=== PATIENT | female | born 1995 | race Caucasian/White ===

== ENCOUNTER → 2018-03-08 | Outpatient (CLI) | payer OTHER ==
[~2018-03-08] MED LIST: CLR10 PO; OXAP600T PO
[2018-03-08 12:35] LABS: TRANSFERRIN 300 mg/dl (200-360)
[2018-03-11 21:36] LABS: PARVOVIRUS IgM INDEX 0.3 (<0.9)
== END | disposition home or self-care (01) ==
LOC: C.LAB1850 09:36
PROVIDERS: ATTEND Internal Medicine Rheumatology
DX: M79.641 Pain in right hand (principal); M79.642 Pain in left hand; M46.1 Sacroiliitis, not elsewhere classified; M54.5 Low back pain

== ENCOUNTER → 2018-03-08 | Outpatient (CLI) | payer OTHER ==
--- NOTE | 2018-03-08 10:22 | DIAGNOSTIC IMAGING REPORT ---
L KNEE 1 OR 2 VIEWS ROUTINE CLINICAL HISTORY: Bilateral knee pain. COMPARISON: None FINDINGS: Alignment of the left knee is anatomic. No fracture or suspicious lesion is identified. The joint spaces are preserved. There is an equivocal joint effusion. No erosions are identified. IMPRESSION: 1. No osseous abnormality of the left knee. 2. Equivocal joint effusion. Electronically signed by: Natalio Luciano M.D. 03/08/2018 10:20 AM Dictated Date/Time: 03/08/2018 10:20 AM
--- NOTE | 2018-03-08 10:22 | DIAGNOSTIC IMAGING REPORT ---
R KNEE 1 OR 2 VIEWS ROUTINE CLINICAL HISTORY: Bilateral knee pain. COMPARISON: None FINDINGS: Alignment of the right knee is anatomic. No fracture or suspicious lesion. No joint effusion is identified. No erosions are identified. IMPRESSION: Unremarkable right knee radiographs. Electronically signed by: Natalio Luciano M.D. 03/08/2018 10:21 AM Dictated Date/Time: 03/08/2018 10:21 AM
--- NOTE | 2018-03-08 10:25 | DIAGNOSTIC IMAGING REPORT ---
SI JOINTS 3 OR MORE VIEWS CLINICAL HISTORY: Sacroiliitis. COMPARISON STUDY: No previous studies for comparison. FINDINGS: An intrauterine device is incidentally noted. Sacroiliac joints are intact without evidence for ankylosis. No fracture or suspicious osseous lesion is present. There may be a bone island within the right femoral head. No erosions are identified. There may be a transitional vertebra at the lumbosacral junction. IMPRESSION: Unremarkable radiographic appearance of the sacroiliac joints. No erosions identified. Electronically signed by: Natalio Luciano M.D. 03/08/2018 10:24 AM Dictated Date/Time: 03/08/2018 10:23 AM
--- NOTE | 2018-03-08 10:30 | DIAGNOSTIC IMAGING REPORT ---
L HAND MIN 3 VIEWS ROUTINE CLINICAL HISTORY: 79.641 Bilateral hand painM79.642 Sacroiliitis, not elsewhere cl COMPARISON: None. DISCUSSION: The bones and joint spaces appear intact. There is no evidence of fracture, dislocation or bony disease. There is no evidence for soft tissue swelling. IMPRESSION: Negative study. The above report was generated using voice recognition software. It may contain grammatical, syntax or spelling errors. Electronically signed by: Sonny Sanchez M.D. 03/08/2018 10:29 AM Dictated Date/Time: 03/08/2018 10:28 AM
== END | disposition home or self-care (01) ==
LOC: C.RAD1850 09:49
PROVIDERS: ATTEND Internal Medicine Rheumatology
DX: M25.561 Pain in right knee (principal); M25.562 Pain in left knee; M46.1 Sacroiliitis, not elsewhere classified; M54.5 Low back pain; M79.641 Pain in right hand; M79.642 Pain in left hand; M25.462 Effusion, left knee

== ENCOUNTER → 2018-03-19 | Outpatient (CLI) | payer OTHER ==
--- NOTE | 2018-03-19 10:10 | DIAGNOSTIC IMAGING REPORT ---
SACROILIAC JOINT MRI CLINICAL HISTORY: SACROILIITIS TECHNIQUE: Multiplanar multisequence MRI of the sacroiliac joints was performed without the use of intravenous contrast. COMPARISON STUDY: Sacroiliac joints 03/08/2018. FINDINGS: No erosions, sclerosis, or abnormal signal within the sacroiliac joints. The sacrum demonstrates a normal marrow signal intensity. No fractures identified. Presacral soft tissues are within normal limits. There are few small follicles/cysts within the ovaries. The Intrauterine device is in good position. The sacral canal and sacral neural foramen are patent. Transitional vertebra at S1 with a hypoplastic S1-S2 disc space. The uterus is retroflexed. Trace pelvic fluid is likely physiologic. IMPRESSION: Normal bilateral sacroiliac joints. Electronically signed by: Srini Page M.D. 03/19/2018 10:09 AM Dictated Date/Time: 03/19/2018 10:05 AM
== END | disposition home or self-care (01) ==
LOC: C.MRI 09:13
PROVIDERS: ATTEND Internal Medicine Rheumatology
DX: M25.561 Pain in right knee (principal); M25.562 Pain in left knee; M46.1 Sacroiliitis, not elsewhere classified; M54.5 Low back pain; M79.641 Pain in right hand; M79.642 Pain in left hand

== ENCOUNTER 2022-04-22 12:47 | Inpatient (IN) ==
[2022-04-22] MEDS ORDERED: OXYTOCIN 30 UNITS/500 ML BAG IV PRN ×3 (13:30→20:17)
[2022-04-22 14:22] LABS: Hematocrit (blood only) 33.4 % (37-47); Hemoglobin 10.7 g/dL (12.0-16.0); Mean Corpuscular Hemoglobin 27.1 pg (25-34); Mean Corpuscular Volume 84.6 fL (80-100); Platelet Count 212 K/uL (130-400); RDW Coefficient of Variation 13.8 % (11.5-14.5); RDW Standard Deviation 42.6 fL (36.4-46.3); Red Blood Count 3.95 M/uL (4.2-5.4); White Blood Count 10.03 K/uL (4.8-10.8)
[2022-04-22] MEDS: LACTATED RINGER'S 1,000 ML IV PRN ×2 (15:33→17:05)
[2022-04-22] MEDS ORDERED: ePHEDrine sulfate 50 MG/ML AMP ONE (15:41)
[2022-04-22] MEDS ORDERED: SODIUM CHLORIDE 0.9% INJ 10 ML VIAL ONE (15:41)
[2022-04-22] MEDS ORDERED: fentaNYL citrate 100 MCG/2 ML VIAL ONE (15:41)
[2022-04-22] MEDS ORDERED: BUPIVACAINE 0.25% 30 ML VIAL ONE (15:42)
[2022-04-22] MEDS ORDERED: fentaNYL 2MCG/ML ROPIVACAINE 1.25MG/ML 100 ML BAG EPI ONE (15:42)
[2022-04-22] MEDS ORDERED: ONDANSETRON INJ 2 MG/ML 2 ML VIAL IV PRN (15:48)
[2022-04-22] MEDS ORDERED: NALBUPHINE HCL INJ 10 MG/ML AMP IV PRN (15:48)
[2022-04-22] MEDS ORDERED: NALOXONE HCL 0.4 MG/1 ML VIAL/CARP IV PRN (15:48)
[2022-04-22] MEDS ORDERED: diphenhydrAMINE 50 MG/ML VIAL IV PRN (15:48)
[2022-04-22] MEDS ORDERED: fentaNYL 2MCG/ML ROPIVACAINE 1.25MG/ML 100 ML BAG EPI PRN (15:48)
[2022-04-22] MEDS ORDERED: NALOXONE HCL 1 MG in SODIUM CHLORIDE 0.9% 1000ML 1,000 ML IV PRN (15:48)
[2022-04-22] MEDS ORDERED: ePHEDrine sulfate 50 MG/ML AMP IV PRN (15:48)
--- NOTE | 2022-04-22 15:49 | Anesthesiology Consultation ---
Date of Service April 22, 2022 Assessment & Plan (1) Encounter for pre-operative examination: History Height/Weight Height: 5 ft 4 in Weight: 100.244 kg Allergies Allergy/AdvReac Type Severity Reaction Status Date / Time No Known Allergies Verified 04/22/22 13:51 Medications Home Medications Medication Instructions Recorded Confirmed Last Taken prenat.vits,tressa,egq-urhw-xvnma 1 tab PO DAILY 09/09/21 04/22/22 Unknown famotidine 10 mg tablet (Pepcid AC) 10 mg PO DAILY 09/20/21 04/22/22 Unknown acetone (urine) test (Ketone Urine #50 ea 02/13/22 04/18/22 Unknown Test) blood sugar diagnostic ([employer] [facility] #150 ea 02/13/22 04/18/22 Unknown Verio test strips) blood-glucose meter ([employer] [facility] #1 ea 02/13/22 04/18/22 Unknown Verio Flex meter) lancets 33 gauge (OneTouch Delica #150 ea 02/13/22 04/18/22 Unknown Plus Lancet) ondansetron HCl 4 mg tablet 4 mg PO Q6H #30 tab 02/21/22 04/22/22 Unknown Active Medications Generic Name Dose Route Start Last Admin Trade Name Freq PRN Reason Stop Dose Admin Lactated Ringer's 1,000 mls @ 125 mls/hr 04/22/22 13:30 04/22/22 15:35 Lr IV 04/24/22 13:29 999 mls/hr .Q8H PRN Infusion L&D Protocol Protocol Past Medical History Medical History Depression No pertinent past medical history Past Family History Family History Mother Hypertension Multiple sclerosis Thyroid disease Family/Other Diabetes Denies family history of Ovarian cancer Breast cancer Colorectal cancer Past Surgical History Surgical History S/P tooth extraction Social History Smoking Status: Never smoker Hx Alcohol Use: No Hx Substance Use: No substance use type: does not use Physical Exam Vital Signs Last Vital Signs Temp 36.9 C 04/22/22 13:01 Pulse 79 04/22/22 15:37 Resp 20 04/22/22 13:01 BP 128/85 04/22/22 15:37 Testing Laboratory Results 04/22/22 13:53 Blood Type O Positive 04/22/22 13:53 Antibody Screen NEGATIVE 04/22/22 13:53
--- NOTE | 2022-04-22 17:10 | History & Physical Report ---
Date of Service April 22, 2022 Assessment & Plan (1) Encounter for supervision of normal in multigravida: Plan: Admit to L&D, EFM/toco. Labs, IV fluids. Glucose checks Q1h when active labor. Gave patient option to either start pitocin now, or ambulate and see if she kicks in . Agreeable to pitocin if no labor in 6h. She plans for epidural. Admission and Anticipated Discharge Date Admission Date: April 22, 2022 History of Present Illness Chief Complaint: labor Primary Care Provider: Griffin Lujan 27yo @ 39 0/7, admitted this morning after SROM, clear fluid at home 9:45a. Sometimes feeling contractions. No vaginal bleeding. + movement. with: Obesity (BMI between 35-39 @ beginning of ) *Growth US @ 32 wks *Weekly NSTs @ 36wks GDM w/28wk glucola *Begin monthly AC Us's ECV scheduled 04/10/22-successful Allergies Allergy/AdvReac Type Severity Reaction Status Date / Time No Known Allergies Verified 04/22/22 13:51 Home Medications Medication Instructions Recorded Confirmed Type prenat.vits,tressa,ajd-oset-tswhe 1 tab PO DAILY 09/09/21 04/22/22 History famotidine 10 mg tablet (Pepcid AC) 10 mg PO DAILY 09/20/21 04/22/22 History acetone (urine) test (Ketone Urine #50 ea 02/13/22 04/18/22 Rx Test) blood sugar diagnostic (OneTouch #150 ea 02/13/22 04/18/22 Rx Verio test strips) blood-glucose meter (OneTouch #1 ea 02/13/22 04/18/22 Rx Verio Flex meter) lancets 33 gauge (OneTouch Delica #150 ea 02/13/22 04/18/22 Rx Plus Lancet) ondansetron HCl 4 mg tablet 4 mg PO Q6H #30 tab 02/21/22 04/22/22 Rx Patient History Medical History Depression No pertinent past medical history Surgical History S/P tooth extraction Family History Mother Hypertension Multiple sclerosis Thyroid disease Family/Other Diabetes Denies family history of Ovarian cancer Breast cancer Colorectal cancer Social History Smoking Status: Never smoker Second Hand Exposure: No; Hx Alcohol Use: No Hx Substance Use: No Preferred Language: Irish Communication Ability: Effective Critical Systems Technician Required: No Beliefs That Will Affect Care: None marital status: marital status details: Rufino Russo (28) [phone] Current Living Situation: Family Current Living Situation Comment: and 10 y/o daughter; 1 dog, 3 cats, snake, lizard current occupational status: employed 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 No s/s chorio or abruption. Skin: no rashes, warm and dry Psychiatric: A+Ox3, euthymic affect Results & Data ([facility]) Vital Signs (Past 12 Hours) Vital Signs Temp Pulse Resp BP Pulse Ox 04/22/22 17:07 77 124/58 L 04/22/22 17:05 79 98 04/22/22 17:03 80 121/67 04/22/22 17:00 79 98 04/22/22 16:58 76 103/70 04/22/22 16:55 84 99 04/22/22 16:52 75 108/57 L 04/22/22 16:50 83 97 04/22/22 16:47 75 113/60 04/22/22 16:45 83 97 04/22/22 16:44 72 115/63 04/22/22 16:40 79 98 04/22/22 16:39 78 116/64 04/22/22 16:35 84 98 04/22/22 16:31 82 115/61 04/22/22 16:30 85 97 04/22/22 16:29 77 114/61 04/22/22 16:27 81 119/63 04/22/22 16:25 37.0 C 95 H 18 117/66 99 04/22/22 16:23 90 126/71 04/22/22 16:20 108 H 98 04/22/22 16:15 102 H 98 04/22/22 16:10 89 99 04/22/22 16:05 94 H 100 04/22/22 16:00 85 100 04/22/22 15:55 107 H 99 04/22/22 15:50 84 99 04/22/22 15:37 79 128/85 04/22/22 13:01 36.9 C 96 H 20 130/84 04/22/22 12:58 96 H 130/84 Monitoring External Monitor FHT Cat 1 [place] Q 3-4 min SVE 4/70/-2, soft/posterior. EFW 7-8 Coding Level of Care Code None Diagnoses Encounter for supervision of normal in multigravida Z34.80
[2022-04-22] MEDS ORDERED: LIDOCAINE 1% LOCAL 20 ML VIAL ONE (19:51)
--- NOTE | 2022-04-22 20:15 | Delivery Summary ---
Vaginal Delivery Summary Date of Service April 22, 2022 Vaginal Delivery Summary Vaginal Delivery Summary: Pre-delivery diagnoses: 27yo @ 39 0/7, spontaneous labor, s/p ECV, GDMA1, obesity Post-delivery diagnoses: same Procedure: spontaneous vaginal delivery Surgeon: Char Keith DO Complications: none Findings: Viable female . Apgars: 8/9. Weight pending, please see nursery records. Estimated blood loss: 300ml Description of delivery: The patient progressed to complete with epidural anesthesia. She then began to push. She spontaneously vaginally delivered a viable from the cephalic presentation. The head delivered in GALO position. The anterior shoulder delivered, followed by the posterior shoulder, followed by the body. No nuchal cord noted. The baby was placed on mother's abdomen and a spontaneous cry was heard. Delayed cord clamping was employed, and the cord was doubly clamped and cut. Cord blood was obtained. The placenta was delivered spontaneously intact with a 3-vessel cord. The uterus and vagina were swept of clots and debris. IV pitocin was given. The uterus became firm. Bladder was emptied with a red-rubber catheter. The cervix, vagina, and perineum were inspected and bilateral labial lacerations were noted and repaired with 3-0 Vicryl, with the catheter still in place. Excellent hemostasis was observed. The mother and baby are recovering in stable and good condition in the room. Sponge, needle and instrument counts were correct x 2. Char Keith DO [facility] [place]
[2022-04-22] MEDS ORDERED: ACETAMINOPHEN 325 MG TAB PO PRN (20:17)
[2022-04-22] MEDS ORDERED: DIPHTHERIA/TETANUS/PERTUSSIS 0.5 ML SYR/VIAL IM ONE (20:17)
[2022-04-22] MEDS ORDERED: HYDROCORTISONE ACETATE 25 MG SUPP PR PRN (20:17)
[2022-04-22] MEDS ORDERED: FAMOTIDINE 10 MG TABLET PO PRN (20:17)
[2022-04-22] MEDS ORDERED: bisacodyL 10 MG SUPP PR PRN (20:17)
[2022-04-22] MEDS ORDERED: oxyCODONE/ACETAMINOPHEN 5mg/325mg TAB PO PRN (20:17)
[2022-04-22] MEDS ORDERED: BENZOCAINE 20% AER SPR 82.5 GM CAN EXT PRN (20:17)
[2022-04-22] MEDS: DOCUSATE SODIUM 100 MG CAP PO SCH (21:09)
--- NOTE | 2022-04-22 22:47 | Anesthesia Procedure Note ---
Date of Service April 22, 2022 Anesthesia Post Epidural Note Vital Signs Vital Signs: Temp Pulse Resp BP Pulse Ox 36.7 C 83 20 139/75 97 04/22/22 19:01 04/22/22 22:04 04/22/22 22:03 04/22/22 22:04 04/22/22 20:00 Pain Intensity Bilateral Pelvic: Pain Intensity: 2 Notes Mental Status: alert / awake / arousable Nausea / Vomiting: adequately controlled Pain: adequately controlled Airway Patency, RR, SpO2: stable & adequate BP & HR: stable & adequate Hydration State: stable & adequate Neuraxial Anesthesia: was administered and sensory block is resolving Anesthetic Complications: no major complications apparent and Pt Satisfied with anesthetic care Epidural: Removed without complications and With tip intact
[2022-04-23 06:28] LABS: Hematocrit (blood only) 30.8 % (37-47); Hemoglobin 9.8 g/dL (12.0-16.0)
[2022-04-23] MEDS ORDERED: PRENATAL VITAMIN 1 TAB PO SCH (08:00)
--- NOTE | 2022-04-23 08:03 | Obstetrical Progress Note ---
Date of Service April 23, 2022 Assessment & Plan (1) Encounter for supervision of normal in multigravida: PPD#1 doing well. No concerns. Routine recovery. Desires discharge home today, reviewed instructions. Followup in office 6w PP. Subjective Ambulation: ambulating normally Voiding: no voiding problems Diet Tolerance:: regular diet Lochia:: Moderate PPD#1 doing well. . Review of Systems All systems reviewed & are unremarkable except as noted in HPI & below Physical Exam Constitutional WD/WN, vitals as above no acute distress Respiratory normal respiratory effort Cardiovascular Rate/Rhythm: regular rate and regular rhythm Gastrointestinal (Abdomen) Inspection/Auscultation: abdomen normal to inspection; abdomen not distended Percussion/Palpation: abdomen soft Genitourinary OB Exam Abdomen: + fundal height Fundus: + firm; not tender Results & Data ([facility]) Vital Signs (Past 12 Hours) Vital Signs Temp Pulse Pulse Resp BP BP Pulse Ox 04/23/22 04:16 36.8 C 73 18 125/78 97 04/22/22 22:55 36.5 C 87 16 136/86 97 04/22/22 22:04 83 139/75 04/22/22 22:03 83 20 139/75 04/22/22 21:49 82 113/62 04/22/22 21:34 81 131/75 04/22/22 21:33 83 18 111/63 04/22/22 21:19 83 111/63 04/22/22 21:04 89 120/75 04/22/22 21:02 79 18 129/80 04/22/22 20:49 79 129/80 04/22/22 20:47 79 18 129/80 04/22/22 20:34 79 125/78 04/22/22 20:32 79 20 125/78 04/22/22 20:21 85 119/66 04/22/22 20:17 85 20 119/66 04/22/22 20:03 90 18 123/69
[2022-04-23] MEDS: IBUPROFEN 600 MG TAB PO PRN ×3 (08:42→18:28)
[2022-04-23] MEDS: DOCUSATE SODIUM 100 MG CAP PO SCH ×2 (08:42→19:35)
[2022-04-23] MEDS ORDERED: bisacodyL 5 MG TABEC PO SCH (20:00)
== END 2022-04-23 20:30 | disposition home or self-care (01) | DRG 807 ==
LOC: OPB 12:47 → 4S1 12:48 → 4E2 22:23

== ENCOUNTER 2023-10-03 13:49 | Inpatient (IN) ==
[2023-10-03] MEDS ORDERED: OXYTOCIN 30 UNITS/NSS 30 UNITS/500 ML BAG IV PRN ×2 (16:14→20:16)
[2023-10-03] MEDS ORDERED: LIDOCAINE 1% LOCAL 20 ML VIAL INFIL PRN (16:14)
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
[2023-10-03 17:55] LABS: Hematocrit (blood only) 30.9 % (37.0-47.0); Hemoglobin 9.2 g/dl (12.0-16.0); Mean Corpuscular Hemoglobin 21.4 pg (25.0-34.0); Mean Corpuscular Hgb Conc 29.8 g/dL (32.0-36.0); Mean Corpuscular Volume 71.9 fL (80.0-100.0); Mean Platelet Volume 11.3 fL (9.4-12.4); Platelet Count 211 K/uL (130-400); RDW Coefficient of Variation 16.2 % (11.5-14.5); RDW Standard Deviation 41.2 fL (36.4-46.3); White Blood Count 12.74 K/ul (4.8-10.8)
[2023-10-03] MEDS: LACTATED RINGER'S 1,000 ML IV PRN ×2 (18:10→21:22)
[2023-10-03] MEDS ORDERED: SODIUM CHLORIDE 0.9% PF INJ 10 ML VIAL ONE (18:16)
[2023-10-03] MEDS ORDERED: BUPIVACAINE 0.25% PF 30 ML VIAL ONE (18:16)
[2023-10-03] MEDS ORDERED: LIDOCAINE 2%/EPINEPHRINE 1:200,000 20 ML PF ONE (18:16)
[2023-10-03] MEDS ORDERED: ePHEDrine sulfate 50 MG/ML AMP ONE (18:16)
[2023-10-03] MEDS ORDERED: fentaNYL citrate PF 100 MCG/2 ML VIAL ONE (18:16)
[2023-10-03] MEDS ORDERED: fentANYL 2 MCG/ML BUPIVacaine 0.125%-NSS 100ML BAG ONE (18:16)
[2023-10-03] MEDS ORDERED: LIDOCAINE 2%/EPINEPHRINE 1:200,000 20 ML PF EPI STA (18:22)
[2023-10-03] MEDS ORDERED: fentaNYL citrate PF 100 MCG/2 ML VIAL EPI STA (18:22)
[2023-10-03] MEDS ORDERED: SODIUM CHLORIDE 0.9% PF INJ 10 ML VIAL EPI STA (18:22)
[2023-10-03] MEDS ORDERED: ROPIVACAINE 0.5% PF 5 MG/ML 20 ML VIAL EPI PRN (18:22)
[2023-10-03] MEDS ORDERED: LIDOCAINE 2% MPF LOCAL 5 ML VIAL EPI PRN (18:22)
[2023-10-03] MEDS ORDERED: fentaNYL citrate PF 100 MCG/2 ML VIAL EPI PRN (18:22)
[2023-10-03] MEDS ORDERED: SODIUM CHLORIDE 0.9% PF INJ 10 ML VIAL EPI PRN (18:22)
[2023-10-03] MEDS ORDERED: ePHEDrine sulfate 50 MG/ML AMP IV PRN (18:22)
[2023-10-03] MEDS ORDERED: fentANYL 2 MCG/ML BUPIVacaine 0.125%-NSS 100ML BAG EPI PRN (18:22)
[2023-10-03] MEDS ORDERED: NALBUPHINE HCL 5 MG in SYRINGE 0 ML IV PRN (18:22)
[2023-10-03] MEDS ORDERED: diphenhydrAMINE 50 MG/ML VIAL IV PRN (18:22)
[2023-10-03] MEDS ORDERED: BUPIVACAINE 0.25% PF 30 ML VIAL EPI STA (18:22)
[2023-10-03] MEDS ORDERED: BUPIVACAINE 0.25% PF 30 ML VIAL EPI PRN (18:22)
[2023-10-03] MEDS ORDERED: NALOXONE HCL 1 MG in SODIUM CHLORIDE 0.9% 1,000 ML IV PRN (18:22)
[2023-10-03] MEDS ORDERED: NALOXONE HCL 0.4 MG/1 ML VIAL/CARP IV PRN (18:22)
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
--- NOTE | 2023-10-03 20:16 | Labor Progress Brief Note ---
Date of Service October 03, 2023 Assessment & Plan (1) Gestational diabetes mellitus (GDM) affecting , antepartum: Plan: 28 yo at 40 wga admitted in early labor VSS Fetus cat 1 Labor - s/p arom, pit prn A1GDM - q4h bg GBS neg epidural in place Admission and Anticipated Discharge Date Admission Date: October 03, 2023 Physical Exam Genitourinary: Manual OB Exam: + cervical dilation (5-6), + cervical effacement 60%, + station -2 and + amniotic fluid (arom clear) OB Exam Monitor Tracing: + external FHT monitor used, + external uterine monitor used (q5-7) and + category I (120/mod/+accel/-decel) Results & Data Vital Signs (Past 12 Hours) Vital Signs Temp Pulse Resp BP Pulse Ox 10/03/23 20:12 102 H 115/57 L 10/03/23 20:10 103 H 100 10/03/23 20:05 118 H 100 10/03/23 20:01 91 H 108/68 10/03/23 20:00 91 H 100 10/03/23 19:56 104 H 106/69 10/03/23 19:55 99 H 99 10/03/23 19:51 103 H 103/60 10/03/23 19:50 110 H 100 10/03/23 19:48 93 H 109/64 10/03/23 19:45 92 H 100 10/03/23 19:41 125 H 97/63 L 10/03/23 19:40 131 H 100 10/03/23 19:36 110 H 106/70 10/03/23 19:35 102 H 100 10/03/23 19:33 110 H 103/58 L 10/03/23 19:31 99 H 110/63 10/03/23 19:30 93 H 98 10/03/23 19:27 126 H 100/55 L 10/03/23 19:26 120 H 106/70 10/03/23 19:25 118 H 100 10/03/23 19:24 131 H 91/58 L 10/03/23 19:21 129 H 96/53 L 10/03/23 19:20 133 H 98 10/03/23 19:16 123 H 100/57 L 10/03/23 19:15 122 H 100 10/03/23 19:11 131 H 101/60 10/03/23 19:10 130 H 100 10/03/23 19:06 133 H 100/61 10/03/23 19:05 132 H 100 10/03/23 19:01 125 H 108/64 10/03/23 19:00 97.7 F 18 10/03/23 19:00 97.7 F 128 H 18 100 10/03/23 18:55 133 H 115/64 99 10/03/23 18:53 110 H 112/60 10/03/23 18:51 131 H 105/58 L 10/03/23 18:50 122 H 100 10/03/23 18:49 122 H 106/59 L 10/03/23 18:48 121 H 127/61 10/03/23 18:45 103 H 86/42 L 100 10/03/23 18:42 113 H 106/56 L 10/03/23 18:40 127 H 100 10/03/23 18:35 123 H 100 10/03/23 18:30 148 H 99 10/03/23 18:25 114 H 100 10/03/23 18:24 105 H 115/73 10/03/23 13:59 98.2 F 18 10/03/23 13:55 96 H 120/77 Coding Level of Care Code None Diagnoses Gestational diabetes mellitus (GDM) affecting , antepartum O24.419
[2023-10-03] MEDS ORDERED: CALCIUM CARBONATE 500 MG CHEWABLE TAB PO PRN (20:19)
[2023-10-03] MEDS ORDERED: FAMOTIDINE 20 MG in SYRINGE 3 ML IV SCH (21:00)
--- NOTE | 2023-10-03 22:04 | Delivery Summary ---
Vaginal Delivery Summary Date of Service October 03, 2023 Vaginal Delivery Summary and 1st Degree LAC PREOPERATIVE DIAGNOSIS: 1. Single intrauterine at 40 wga 2. Labor 3. A1GDM POSTOPERATIVE DIAGNOSIS: 1. Single intrauterine at 40 wga 2. Labor 3. A1GDM 4. Delivered PROCEDURE: 1. Normal spontaneous vaginal delivery. SURGEON: Shikha Martel MD ANESTHESIA: Epidural. ESTIMATED BLOOD LOSS: 300 mL FLUIDS: Continuous LR. URINE OUTPUT: Not measured COMPLICATIONS: None. CONDITION: Stable. INDICATIONS: 28 yo at 40 wga presented for prolonged monitoring from the office where she was 4cm. Monitoring was reactive however contractions noted to increase and she was rechecked and found to be 5cm. Following admission, contractions worsened and she received an epidural for pain control. She underwent arom and continued to progress to complete and desired to push FINDINGS: A viable male , weight pending with Apgars of 8 and 9 at 1 and 5 minutes respectively. SPECIMEN: Cord blood OPERATIVE REPORT: The patient progressed to 10 cm, 100% effaced and +2 station, pushed over intact perineum with anesthesia to deliver a viable male , weight and Apgars as above. Head of delivered in GALO position. No nuchal cord was present. Body and shoulders were delivered without difficulty. was delivered to maternal abdomen and nursing staff. Delayed cord clamping was performed for 60 seconds. Cord was clamped and cut. Cord blood was obtained. Placenta delivered spontaneously intact with 3-vessel cord. IV oxytocin and fundal massage were given for excellent hemostasis. Vagina, cervix, perineum, and placenta were inspected. A first degree was repaired using 4-0 vicryl, there was excellent hemostasis Sponge and needle counts correct x2. No sponges were left behind. Mother and stable in immediate period. [facility] Vaginal Delivery Charge Vaginal Delivery Codes: 90081 global code for the antepartum, delivery, and post- Delivery Type Details: and 1st Degree LAC
[2023-10-04] MEDS ORDERED: HYDROCORTISONE ACETATE 25 MG SUPP PR PRN (00:18)
[2023-10-04] MEDS ORDERED: ACETAMINOPHEN 325 MG TAB PO PRN (00:18)
[2023-10-04] MEDS ORDERED: DIPHTHERIA/TETANUS/PERTUSSIS Vaccine (Tdap, Age 7+yrs) 0.5mL SYR/VL IM ONE (00:18)
[2023-10-04] MEDS ORDERED: OXYTOCIN 30 UNITS/NSS 30 UNITS/500 ML BAG IV PRN (00:18)
[2023-10-04] MEDS ORDERED: BENZOCAINE 20% SPRY 85 APPLN/85 GM CAN EXT PRN (00:18)
[2023-10-04] MEDS: FAMOTIDINE 20 MG TAB PO SCH ×3 (01:45→21:55)
--- NOTE | 2023-10-04 04:28 | Obstetrical Progress Note ---
Date of Service <Rio Jhaveri DO - Last Filed: 10/04/23 05:31> October 04, 2023 Assessment & Plan <Rio Jhaveri DO - Last Filed: 10/04/23 05:31> (1) (spontaneous vaginal delivery): Plan 28 year old female, , PPD#1: Eating well, voiding well, ambulating well Vitals reviewed, WNL Pain well controlled without analgesics Routine post care - OOB, ambulation, diet progression as tolerated Will have 6 week follow up with Dr. Martel <Shikha Martel MD - Last Filed: 10/04/23 08:28> (1) (spontaneous vaginal delivery): Subjective <Rio Jhaveri DO - Last Filed: 10/04/23 05:31> Ambulation: ambulating normally Voiding: no voiding problems Passing Gas:: Yes Diet Tolerance:: regular diet Lochia:: Moderate Feeding Type:: bottle feeding Pain adequately controlled Review of Systems -Denies fever or chills -Denies dyspnea, chest pain, or palpitations -Denies dysuria -Denies headache or changes in vision Physical Exam <Rio Jhaveri DO - Last Filed: 10/04/23 05:31> General: Alert and oriented. No acute distress Cardiac: Regular rate and rhythm, no murmurs appreciated Respiratory: Lungs clear to auscultation bilaterally, No increased work of breathing Abdominal: Soft, non-tender, non-distended. Bowel sounds present. Uterus: Uterine fundus firm, palpable below umbilicus Extremities: No lower extremity edema, calves non-tender bilaterally Results & Data <Rio Jhaveri - Last Filed: 10/04/23 05:31> Vital Signs (Past 12 Hours) Vital Signs Temp Pulse Pulse Resp BP BP Pulse Ox 10/04/23 00:15 36.6 C 92 H 20 123/75 99 10/04/23 00:00 36.5 C 18 10/03/23 23:57 100 H 120/71 10/03/23 23:46 86 113/62 10/03/23 23:31 90 118/66 10/03/23 23:16 95 H 106/67 10/03/23 23:01 95 H 113/57 L 10/03/23 23:00 36.5 C 18 10/03/23 22:46 90 110/57 L 10/03/23 22:45 36.5 C 18 10/03/23 22:30 36.5 C 18 10/03/23 22:30 36.5 C 18 10/03/23 22:29 90 114/72 10/03/23 22:15 36.5 C 18 10/03/23 22:14 97 H 122/59 L 10/03/23 22:00 36.4 C L 18 10/03/23 22:00 102 H 100 10/03/23 21:55 98 H 100 10/03/23 21:54 101 H 106/51 L 10/03/23 21:50 98 H 100 10/03/23 21:45 125 H 100 10/03/23 21:40 141 H 99 10/03/23 21:39 120 H 136/72 10/03/23 21:35 114 H 100 10/03/23 21:30 109 H 100 10/03/23 21:27 104 H 126/79 10/03/23 21:25 103 H 100 10/03/23 21:20 94 H 100 10/03/23 21:15 87 100 10/03/23 21:10 86 100 10/03/23 21:06 89 110/72 10/03/23 21:05 97 H 100 10/03/23 21:01 96 H 108/66 10/03/23 21:00 36.4 C L 87 18 100 10/03/23 20:56 100 H 108/67 10/03/23 20:55 98 H 100 10/03/23 20:51 95 H 116/71 10/03/23 20:50 95 H 99 10/03/23 20:47 111 H 105/59 L 10/03/23 20:46 106 H 108/62 10/03/23 20:45 96 H 100 10/03/23 20:41 96 H 104/66 10/03/23 20:40 92 H 99 10/03/23 20:37 96 H 107/63 10/03/23 20:35 89 100 10/03/23 20:32 92 H 110/69 10/03/23 20:30 88 18 98 10/03/23 20:26 116 H 104/60 10/03/23 20:25 116 H 100 10/03/23 20:21 96 H 100/61 10/03/23 20:20 95 H 100 10/03/23 20:17 96 H 110/61 10/03/23 20:15 92 H 100 10/03/23 20:12 102 H 115/57 L 10/03/23 20:10 103 H 100 10/03/23 20:05 118 H 100 10/03/23 20:01 91 H 108/68 10/03/23 20:00 91 H 18 100 10/03/23 19:56 104 H 106/69 10/03/23 19:55 99 H 99 10/03/23 19:51 103 H 103/60 10/03/23 19:50 110 H 100 10/03/23 19:48 93 H 109/64 10/03/23 19:45 92 H 100 10/03/23 19:41 125 H 97/63 L 10/03/23 19:40 131 H 100 10/03/23 19:36 110 H 106/70 10/03/23 19:35 102 H 100 10/03/23 19:33 110 H 103/58 L 10/03/23 19:31 99 H 110/63 10/03/23 19:30 93 H 18 98 10/03/23 19:27 126 H 100/55 L 10/03/23 19:26 120 H 106/70 10/03/23 19:25 118 H 100 10/03/23 19:24 131 H 91/58 L 10/03/23 19:21 129 H 96/53 L 10/03/23 19:20 133 H 98 10/03/23 19:16 123 H 100/57 L 10/03/23 19:15 122 H 100 10/03/23 19:11 131 H 101/60 10/03/23 19:10 130 H 100 10/03/23 19:06 133 H 100/61 10/03/23 19:05 132 H 100 10/03/23 19:01 125 H 108/64 10/03/23 19:00 36.5 C 18 10/03/23 19:00 36.5 C 128 H 18 100 10/03/23 18:55 133 H 115/64 99 10/03/23 18:53 110 H 112/60 10/03/23 18:51 131 H 105/58 L 10/03/23 18:50 122 H 100 10/03/23 18:49 122 H 106/59 L 10/03/23 18:48 121 H 127/61 10/03/23 18:45 103 H 86/42 L 100 10/03/23 18:42 113 H 106/56 L 10/03/23 18:40 127 H 100 10/03/23 18:35 123 H 100 10/03/23 18:30 148 H 99 10/03/23 18:25 114 H 100 10/03/23 18:24 105 H 115/73 O2 Del Method 10/04/23 00:15 Room Air 10/04/23 00:00 10/03/23 23:57 10/03/23 23:46 10/03/23 23:31 10/03/23 23:16 10/03/23 23:01 10/03/23 23:00 10/03/23 22:46 10/03/23 22:45 10/03/23 22:30 10/03/23 22:30 10/03/23 22:29 10/03/23 22:15 10/03/23 22:14 10/03/23 22:00 10/03/23 22:00 10/03/23 21:55 10/03/23 21:54 10/03/23 21:50 10/03/23 21:45 10/03/23 21:40 10/03/23 21:39 10/03/23 21:35 10/03/23 21:30 10/03/23 21:27 10/03/23 21:25 10/03/23 21:20 10/03/23 21:15 10/03/23 21:10 10/03/23 21:06 10/03/23 21:05 10/03/23 21:01 10/03/23 21:00 10/03/23 20:56 10/03/23 20:55 10/03/23 20:51 10/03/23 20:50 10/03/23 20:47 10/03/23 20:46 10/03/23 20:45 10/03/23 20:41 10/03/23 20:40 10/03/23 20:37 10/03/23 20:35 10/03/23 20:32 10/03/23 20:30 10/03/23 20:26 10/03/23 20:25 10/03/23 20:21 10/03/23 20:20 10/03/23 20:17 10/03/23 20:15 10/03/23 20:12 10/03/23 20:10 10/03/23 20:05 10/03/23 20:01 10/03/23 20:00 10/03/23 19:56 10/03/23 19:55 10/03/23 19:51 10/03/23 19:50 10/03/23 19:48 10/03/23 19:45 10/03/23 19:41 10/03/23 19:40 10/03/23 19:36 10/03/23 19:35 10/03/23 19:33 10/03/23 19:31 10/03/23 19:30 10/03/23 19:27 10/03/23 19:26 10/03/23 19:25 10/03/23 19:24 10/03/23 19:21 10/03/23 19:20 10/03/23 19:16 10/03/23 19:15 10/03/23 19:11 10/03/23 19:10 10/03/23 19:06 10/03/23 19:05 10/03/23 19:01 10/03/23 19:00 10/03/23 19:00 10/03/23 18:55 10/03/23 18:53 10/03/23 18:51 10/03/23 18:50 10/03/23 18:49 10/03/23 18:48 10/03/23 18:45 10/03/23 18:42 10/03/23 18:40 10/03/23 18:35 10/03/23 18:30 10/03/23 18:25 10/03/23 18:24 Supervising Physician <Shikha Martel MD - Last Filed: 10/04/23 08:28> Co-Signing Physician Notes Resident Physician Supervision Note: I interviewed and examined the patient. Discussed with Dr. Jhaveri and agree with findings and plan as documented in the note. Any exceptions or clarifications are listed here: PP1 s/p , doing well. VSS, exam benign and wnl. Desires dc home if possible at 24 c[address], ok to do so if peds clears Documented By: Shikha Martel MD Resident Activity Tracking <Rio Jhaveri DO - Last Filed: 10/04/23 05:31> Resident Involvement: Resident Care Provided Care Provided: OB Delivery
--- NOTE | 2023-10-04 08:00 | Anesthesia Procedure Note ---
Date of Service October 04, 2023 Anesthesia Post Epidural Note Vital Signs Vital Signs: Temp Pulse Resp BP Pulse Ox O2 Del Method 36.9 C 85 16 111/71 99 Room Air 10/04/23 03:50 10/04/23 03:50 10/04/23 03:50 10/04/23 03:50 10/04/23 00:15 10/04/23 00:15 Notes Mental Status: alert / awake / arousable and participated in evaluation Patient Amnestic to Procedure: No Nausea / Vomiting: adequately controlled Pain: adequately controlled Airway Patency, RR, SpO2: stable & adequate BP & HR: stable & adequate Hydration State: stable & adequate Neuraxial Anesthesia: was administered and sensory block resolved Anesthetic Complications: no major complications apparent and Pt Satisfied with anesthetic care Epidural: Removed without complications and With tip intact
[2023-10-04] MEDS: DOCUSATE SODIUM 100 MG CAP PO SCH ×2 (08:20→21:16)
[2023-10-04] MEDS: IBUPROFEN 600 MG TAB PO PRN (08:20)
[2023-10-04] MEDS: PRENATAL VITAMIN 1 TAB PO SCH (08:20)
[2023-10-04] MEDS: FERROUS SULFATE 325 MG TAB PO SCH (08:24)
[2023-10-04] MEDS ORDERED: bisacodyL 5 MG TABEC PO SCH (20:00)
[2023-10-05] MEDS ORDERED: bisacodyL 10 MG SUPP PR PRN
[2023-10-05] MEDS: IBUPROFEN 600 MG TAB PO PRN ×2 (03:28→07:56)
--- NOTE | 2023-10-05 04:47 | Obstetrical Progress Note ---
Date of Service <Rio Emilio - Last Filed: 10/05/23 06:14> October 05, 2023 Assessment & Plan <Rio Jhaveri - Last Filed: 10/05/23 06:14> (1) (spontaneous vaginal delivery): Plan 28 year old female, , PPD#2: Eating well, voiding well, ambulating well Vitals reviewed, WNL Pain well controlled with Motrin Routine post care - OOB, ambulation, diet progression as tolerated Will have 6 week follow up with Dr. Martel <Rebecca Lau MD, FACOG - Last Filed: 10/05/23 07:22> (1) (spontaneous vaginal delivery): Subjective <Rio Jhaveri DO - Last Filed: 10/05/23 06:14> Ambulation: ambulating normally Voiding: no voiding problems Passing Gas:: Yes Diet Tolerance:: regular diet Lochia:: Moderate Feeding Type:: bottle feeding Pain well controlled with Motrin Review of Systems -Denies fever or chills -Denies dyspnea, chest pain, or palpitations -Denies dysuria -Denies headache or changes in vision Physical Exam <Rio Jhaveri, - Last Filed: 10/05/23 06:14> General: Alert and oriented. No acute distress Cardiac: Regular rate and rhythm, no murmurs appreciated Respiratory: Lungs clear to auscultation bilaterally, No increased work of breathing Abdominal: Soft, non-tender, non-distended. Bowel sounds present. Uterus: Uterine fundus firm, palpable below umbilicus Extremities: No lower extremity edema, calves non-tender bilaterally Results & Data <Rio Jhaveri - Last Filed: 10/05/23 06:14> Vital Signs (Past 12 Hours) Vital Signs Temp Pulse Resp BP Pulse Ox O2 Del Method 10/05/23 03:25 36.8 C 89 18 109/74 99 Room Air 10/04/23 20:25 36.4 C L 89 20 115/76 100 Room Air Supervising Physician <Rebecca Lau MD, FACOG - Last Filed: 10/05/23 07:22> Co-Signing Physician Notes Resident Physician Supervision Note: I was present with Dr. Jhaveri during the history and exam. I discussed the case with the resident and agree with the findings and plan as documented in the note. Any exceptions or clarifications are listed here: [None] Documented By: Rebecca Lau MD, FACOG Resident Activity Tracking <Rio Jhaveri DO - Last Filed: 10/05/23 06:14> Resident Involvement: Resident Care Provided Care Provided: OB Delivery
[2023-10-05] MEDS: DOCUSATE SODIUM 100 MG CAP PO SCH (07:55)
[2023-10-05] MEDS: PRENATAL VITAMIN 1 TAB PO SCH (07:55)
[2023-10-05] MEDS: FAMOTIDINE 20 MG TAB PO SCH (07:55)
[2023-10-05] MEDS: FERROUS SULFATE 325 MG TAB PO SCH (07:55)
== END 2023-10-05 09:50 | disposition home or self-care (01) | DRG 807 ==
LOC: OPB 13:49 → 4S1 13:50 → 4E2 10-04 00:29

== ENCOUNTER 2024-09-02 14:43 | Inpatient (IN) ==
[2024-09-02] MEDS ORDERED: OXYTOCIN 30 UNITS/NSS 30 UNITS/500 ML BAG IV PRN ×2 (15:32→22:32)
[2024-09-02] MEDS ORDERED: LIDOCAINE 1% LOCAL 20 ML VIAL INFIL PRN (15:32)
[2024-09-02] MEDS: LACTATED RINGER'S 1,000 ML IV SCH ×2 (15:36→20:23)
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
[2024-09-02] MEDS: PENICILLIN GK 6 MU in DEXTROSE 5% 250 ML IV ONE (15:57)
[2024-09-02 16:08] LABS: Hematocrit (blood only) 31.4 % (37.0-47.0); Hemoglobin 9.7 g/dl (12.0-16.0); Mean Corpuscular Hemoglobin 23.8 pg (25.0-34.0); Mean Corpuscular Hgb Conc 30.9 g/dL (32.0-36.0); Mean Corpuscular Volume 77.1 fL (80.0-100.0); Mean Platelet Volume 11.1 fL (9.4-12.4); Platelet Count 151 K/uL (130-400); RDW Coefficient of Variation 25.1 % (11.5-14.5); RDW Standard Deviation 49.5 fL (36.4-46.3); Red Blood Count 4.07 M/uL (4.20-5.40)
--- NOTE | 2024-09-02 19:14 | Labor Progress Brief Note ---
Date of Service September 02, 2024 Subjective some ctx more uncomfortable Assessment & Plan (1) complicated by umbilical cord varix in antepartum period: (2) Carrier of group B Streptococcus: (3) Gestational diabetes mellitus (GDM) affecting , antepartum: Plan 29 yo at 38 wga presents w/ srom VSS Fetus cat 1 Labor - progress noted, ?if forebag noted in b/w ctx. Due for second dose of pcn at 730, discussed attempting arom of forebag if still palpable at that point and pt agreeable. Discussed option for epidural before and pt desires this as well so will let anesthesia noted GDM - will check BG GBS+, pcn ordered epidural prn Admission and Anticipated Discharge Date Admission Date: September 02, 2024 Physical Exam Genitourinary: Manual OB Exam: + cervical dilation (4-5), + cervical effacement 70% and + station -2 OB Exam Monitor Tracing: + external FHT monitor used (q4), + external uterine monitor used (irreg ctx) and + category I (130/mod/+accel/-decel) Results & Data Vital Signs (Past 12 Hours) Vital Signs Temp Pulse Resp BP 09/02/24 19:06 93 H 124/72 09/02/24 17:21 88 114/66 09/02/24 17:15 16 09/02/24 17:15 98.1 F 16 09/02/24 15:23 97.9 F 16 09/02/24 15:00 16 09/02/24 15:00 97.9 F 16 09/02/24 14:53 137 H 123/74 Coding Level of Care Code None Diagnoses complicated by umbilical cord varix in antepartum period O26.899 Carrier of group B Streptococcus Z22.330 Gestational diabetes mellitus (GDM) affecting , antepartum O24.419
[2024-09-02] MEDS: PENICILLIN GK 3 MU in DEXTROSE 5% 100 ML IV PRN (19:32)
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
[2024-09-02] MEDS: LIDOCAINE 2%/EPINEPHRINE 1:200,000 20 ML PF ONE (20:02)
[2024-09-02] MEDS: BUPIVACAINE 0.25% PF 30 ML VIAL ONE (20:02)
[2024-09-02] MEDS: SODIUM CHLORIDE 0.9% PF INJ 10 ML VIAL ONE (20:02)
[2024-09-02] MEDS: fentANYL 2 MCG/ML BUPIVacaine 0.125%-NSS 100ML BAG ONE (20:03)
[2024-09-02] MEDS: ePHEDrine sulfate 50 MG/ML AMP ONE (20:05)
[2024-09-02] MEDS ORDERED: NALBUPHINE HCL INJ 10 MG/ML AMP IV PRN (20:09)
[2024-09-02] MEDS ORDERED: ePHEDrine sulfate 50 MG/ML AMP IV PRN ×2 (20:09→20:13)
[2024-09-02] MEDS ORDERED: diphenhydrAMINE 50 MG/ML VIAL IV PRN (20:09)
[2024-09-02] MEDS ORDERED: NALOXONE HCL 1 MG in SODIUM CHLORIDE 0.9% 1,000 ML IV PRN (20:09)
[2024-09-02] MEDS ORDERED: ROPIVACAINE 0.5% PF 5 MG/ML 20 ML VIAL EPI PRN (20:09)
[2024-09-02] MEDS ORDERED: fentANYL 2 MCG/ML BUPIVacaine 0.125%-NSS 100ML BAG EPI PRN (20:09)
[2024-09-02] MEDS ORDERED: SODIUM CHLORIDE 0.9% PF INJ 10 ML VIAL EPI PRN (20:09)
[2024-09-02] MEDS ORDERED: LIDOCAINE 2% MPF LOCAL 5 ML VIAL EPI PRN (20:09)
[2024-09-02] MEDS ORDERED: fentaNYL citrate PF 100 MCG/2 ML VIAL EPI PRN (20:09)
[2024-09-02] MEDS ORDERED: BUPIVACAINE 0.25% PF 30 ML VIAL EPI PRN (20:09)
[2024-09-02] MEDS ORDERED: NALOXONE HCL 0.4 MG/1 ML VIAL/CARP IV PRN (20:09)
--- NOTE | 2024-09-02 21:26 | Labor Progress Brief Note ---
Date of Service September 02, 2024 Subjective feeling some pressure Assessment & Plan (1) complicated by umbilical cord varix in antepartum period: (2) Carrier of group B Streptococcus: (3) Gestational diabetes mellitus (GDM) affecting , antepartum: Plan 29 yo at 38 wga presents w/ srom VSS Fetus cat 1 Labor - no forebag noted, progress continues. Manage expectantly GDM - BG q2 in active labor GBS+, pcn ordered epidural in place Admission and Anticipated Discharge Date Admission Date: September 02, 2024 Physical Exam Genitourinary: Manual OB Exam: + cervical dilation (6-7), + cervical effacement 70% and + station 0 OB Exam Monitor Tracing: + external FHT monitor used (q4), + external uterine monitor used (irreg ctx) and + category II (130/mod/+accel/occ variable decel since epidural) Results & Data Vital Signs (Past 12 Hours) Vital Signs Temp Pulse Resp BP Pulse Ox 09/02/24 21:21 96 H 99/63 L 09/02/24 21:18 99 H 100 09/02/24 21:17 96 H 113/65 09/02/24 21:13 88 98 09/02/24 21:11 100 H 103/57 L 09/02/24 21:08 99 H 100 09/02/24 21:05 109 H 105/59 L 09/02/24 21:03 96 H 99 09/02/24 21:01 100 H 116/58 L 09/02/24 21:00 18 09/02/24 21:00 98.2 F 18 09/02/24 20:58 110 H 99 09/02/24 20:57 102 H 126/55 L 09/02/24 20:53 102 H 99 09/02/24 20:51 107 H 108/60 09/02/24 20:48 104 H 98 09/02/24 20:46 122 H 100/57 L 09/02/24 20:43 141 H 98 09/02/24 20:41 142 H 84/51 L 09/02/24 20:38 146 H 100 09/02/24 20:36 139 H 95/50 L 09/02/24 20:33 138 H 99 09/02/24 20:31 131 H 96/52 L 09/02/24 20:30 20 09/02/24 20:30 20 09/02/24 20:28 140 H 99 09/02/24 20:25 129 H 09/02/24 20:23 147 H 87/52 L 99 09/02/24 20:21 102 H 109/56 L 09/02/24 20:19 146 H 88/55 L 09/02/24 20:18 151 H 98 09/02/24 20:17 95 H 120/56 L 09/02/24 20:15 123 H 97/53 L 09/02/24 20:13 138 H 91/54 L 99 09/02/24 20:11 113 H 104/58 L 09/02/24 20:09 131 H 86/49 L 09/02/24 20:08 125 H 99 09/02/24 20:06 129 H 97/50 L 09/02/24 20:05 112 H 97/52 L 09/02/24 20:03 135 H 93/53 L 99 09/02/24 20:01 96 H 104/56 L 09/02/24 19:59 96 H 121/60 09/02/24 19:58 93 H 98 09/02/24 19:57 96 H 121/59 L 09/02/24 19:53 97 H 100 09/02/24 19:52 18 09/02/24 19:52 18 09/02/24 19:48 99 H 100 09/02/24 19:43 96 H 99 09/02/24 19:38 91 H 99 09/02/24 19:33 99 H 99 09/02/24 19:30 18 09/02/24 19:30 18 09/02/24 19:06 98.2 F 93 H 18 124/72 09/02/24 17:21 88 114/66 09/02/24 17:15 16 09/02/24 17:15 98.1 F 16 09/02/24 15:23 97.9 F 16 09/02/24 15:00 16 09/02/24 15:00 97.9 F 16 09/02/24 14:53 137 H 123/74 Coding Level of Care Code None Diagnoses complicated by umbilical cord varix in antepartum period O26.899 Carrier of group B Streptococcus Z22.330 Gestational diabetes mellitus (GDM) affecting , antepartum O24.419
--- NOTE | 2024-09-02 22:23 | Delivery Summary ---
Vaginal Delivery Summary Date of Service September 02, 2024 Vaginal Delivery Summary and 1st Degree LAC PREOPERATIVE DIAGNOSIS: 1. Single intrauterine at 38 wga 2. SROM 3. Umbilical vein varix 4. A1GDM 5. GBS+ POSTOPERATIVE DIAGNOSIS: 1. Single intrauterine at 38 wga 2. SROM 3. Umbilical vein varix 4. A1GDM 5. GBS+ 6. Delivered PROCEDURE: 1. Normal spontaneous vaginal delivery. SURGEON: Shikha Martel MD ANESTHESIA: Epidural. QUANTITATIVE BLOOD LOSS: 107 mL FLUIDS: Continuous LR. URINE OUTPUT: 400cc straight cath after delivery COMPLICATIONS: None. CONDITION: Stable. INDICATIONS: 29 yo at 38 wga presented with SROM. She was started on penicillin for GBS+ status. She received an epidural for pain control and progressed to complete and desired to push FINDINGS: A viable male , weight 7lbs 5oz with Apgars of 8 and 9 at 1 and 5 minutes respectively. SPECIMEN: Cord blood, placenta OPERATIVE REPORT: The patient progressed to 10 cm, 100% effaced and +2 station, pushed over intact perineum with anesthesia to deliver a viable male , weight and Apgars as above. Head of delivered in GALO position. Nuchal cord was rapidly delivered through. Body and shoulders were delivered without difficulty. was delivered to maternal abdomen and nursing staff. Delayed cord clamping was performed for 60 seconds. Cord was clamped and cut. Cord blood was obtained. Placenta delivered spontaneously intact with 3-vessel cord. IV oxytocin and fundal massage were given for excellent hemostasis. Vagina, cervix, perineum, and placenta were inspected. A first degree laceration was repaired using 4-0 vicryl, there was excellent hemostasis. Sponge and needle counts correct x2. No sponges were left behind. Mother and stable in immediate period. [facility] [place] Vaginal Delivery Charge Vaginal Delivery Codes: 44358 global code for the antepartum, delivery, and post- Delivery Type Details: and 1st Degree LAC
[2024-09-02] MEDS: SODIUM CHLORIDE 0.9% PF INJ 10 ML VIAL EPI STA (22:27)
[2024-09-02] MEDS: LIDOCAINE 2%/EPINEPHRINE 1:200,000 20 ML PF EPI STA (22:27)
[2024-09-02] MEDS: fentaNYL citrate PF 100 MCG/2 ML VIAL EPI STA (22:27)
[2024-09-02] MEDS: BUPIVACAINE 0.25% PF 30 ML VIAL EPI STA (22:27)
[2024-09-02] MEDS: fentaNYL citrate PF 100 MCG/2 ML VIAL ONE (22:27)
[2024-09-02] MEDS ORDERED: HYDROCORTISONE ACETATE 25 MG SUPP PR PRN (22:32)
[2024-09-02] MEDS ORDERED: BENZOCAINE 20% SPRY 85 APPLN/85 GM CAN EXT PRN (22:32)
[2024-09-02] MEDS ORDERED: ACETAMINOPHEN 325 MG TAB PO PRN (22:32)
--- NOTE | 2024-09-02 23:47 | Anesthesia Procedure Note ---
Date of Service September 02, 2024 Anesthesia Post Epidural Note Vital Signs Vital Signs: Temp Pulse Resp BP Pulse Ox 36.8 C 104 H 18 98/56 L 99 09/02/24 22:34 09/02/24 23:43 09/02/24 23:19 09/02/24 23:34 09/02/24 23:43 Pain Intensity Abdomen: Pain Intensity: 5 Notes Mental Status: alert / awake / arousable Nausea / Vomiting: adequately controlled Pain: adequately controlled Airway Patency, RR, SpO2: stable & adequate BP & HR: stable & adequate Hydration State: stable & adequate Neuraxial Anesthesia: was administered and sensory block is resolving Anesthetic Complications: no major complications apparent and Pt Satisfied with anesthetic care Epidural: Removed without complications and With tip intact
[2024-09-03] MEDS: IBUPROFEN 600 MG TAB PO PRN (02:27)
[2024-09-03] MEDS: DIPHTHER/TETAN/PERTUS Vaccine (Tdap, Adol/Adult) 0.5mL IM ONE (02:39)
--- NOTE | 2024-09-03 08:22 | Obstetrical Progress Note ---
Date of Service September 03, 2024 Assessment & Plan (1) Encounter for care and examination after delivery: 29 yo PP1 from , doing well -Meeting all pp milestones -Rh+/rubella immune/ -f/u 6 weeks for appt, desires dc at 24 hrs Subjective Ambulation: ambulating normally Voiding: no voiding problems Passing Gas:: Yes Diet Tolerance:: regular diet Lochia:: Small Feeding Type:: breast feeding Pain well managed with medication Review of Systems Denies fevers, chills, n/v, MIRELES, CP, SOB Physical Exam Constitutional WD/WN, vitals as above no acute distress Respiratory normal respiratory effort, lungs clear to auscultation Cardiovascular RRR, no murmur, no edema Gastrointestinal (Abdomen) Percussion/Palpation: abdomen soft; abdomen nontender fundus firm at umbilicus and NT Musculoskeletal BLE symmetric, nonerythematous, nontender Results & Data Vital Signs (Past 12 Hours) Vital Signs Temp Pulse Pulse Resp BP BP Pulse Ox 09/03/24 05:06 97.5 F L 78 16 114/69 98 09/03/24 00:45 97.9 F 93 H 18 105/70 97 09/03/24 00:19 18 09/03/24 00:19 90 107/62 09/03/24 00:18 99 H 99 09/03/24 00:13 96 H 99 09/03/24 00:08 90 99 09/03/24 00:04 100 H 106/57 L 09/03/24 00:03 105 H 99 09/02/24 23:58 99 H 99 09/02/24 23:53 94 H 99 09/02/24 23:49 18 09/02/24 23:49 106 H 98/53 L 09/02/24 23:48 110 H 100 09/02/24 23:43 104 H 99 09/02/24 23:38 88 98 09/02/24 23:34 88 98/56 L 09/02/24 23:33 87 98 09/02/24 23:28 87 97 09/02/24 23:23 86 98 09/02/24 23:19 18 09/02/24 23:19 96 H 99/53 L 09/02/24 23:18 92 H 99 09/02/24 23:13 89 98 09/02/24 23:08 87 98 09/02/24 23:04 18 09/02/24 23:04 93 H 88/52 L 09/02/24 23:03 88 99 09/02/24 22:58 85 98 09/02/24 22:53 85 99 09/02/24 22:49 18 09/02/24 22:49 85 90/54 L 09/02/24 22:48 86 99 09/02/24 22:43 96 H 98 09/02/24 22:38 98 H 99 09/02/24 22:34 98.2 F 18 09/02/24 22:34 100 H 110/55 L 09/02/24 22:33 99 H 99 09/02/24 22:28 98 H 98 09/02/24 22:23 95 H 98 09/02/24 22:19 106 H 109/56 L 09/02/24 22:18 102 H 99 09/02/24 22:13 101 H 99 09/02/24 22:08 110 H 99 09/02/24 22:06 104 H 119/56 L 09/02/24 22:03 134 H 100 09/02/24 22:02 125 H 90 09/02/24 22:01 127 H 106/59 L 09/02/24 22:00 20 09/02/24 22:00 20 09/02/24 21:58 114 H 98 09/02/24 21:56 115 H 101/57 L 09/02/24 21:53 111 H 100 09/02/24 21:50 98 H 100/56 L 09/02/24 21:48 106 H 100 09/02/24 21:45 101 H 112/57 L 09/02/24 21:43 109 H 100 09/02/24 21:40 105 H 120/57 L 09/02/24 21:38 111 H 100 09/02/24 21:37 112 H 124/62 09/02/24 21:33 105 H 100 09/02/24 21:30 111 H 18 124/61 09/02/24 21:28 99 H 100 09/02/24 21:26 87 106/59 L 09/02/24 21:23 103 H 100 09/02/24 21:21 96 H 99/63 L 09/02/24 21:18 99 H 100 09/02/24 21:17 96 H 113/65 09/02/24 21:13 88 98 09/02/24 21:11 100 H 103/57 L 09/02/24 21:08 99 H 100 09/02/24 21:05 109 H 105/59 L 09/02/24 21:03 96 H 99 09/02/24 21:01 100 H 116/58 L 09/02/24 21:00 18 09/02/24 21:00 18 09/02/24 21:00 18 09/02/24 21:00 98.2 F 18 09/02/24 20:58 110 H 99 09/02/24 20:57 102 H 126/55 L 09/02/24 20:53 102 H 99 09/02/24 20:51 107 H 108/60 09/02/24 20:48 104 H 98 09/02/24 20:46 122 H 100/57 L 09/02/24 20:43 141 H 98 09/02/24 20:41 142 H 84/51 L 09/02/24 20:38 146 H 100 09/02/24 20:36 139 H 95/50 L 09/02/24 20:33 138 H 99 09/02/24 20:31 131 H 96/52 L 09/02/24 20:30 20 09/02/24 20:30 20 09/02/24 20:28 140 H 99 09/02/24 20:25 129 H 09/02/24 20:23 147 H 87/52 L 99 O2 Del Method 09/03/24 05:06 Room Air 09/03/24 00:45 Room Air 09/03/24 00:19 09/03/24 00:19 09/03/24 00:18 09/03/24 00:13 09/03/24 00:08 09/03/24 00:04 09/03/24 00:03 09/02/24 23:58 09/02/24 23:53 09/02/24 23:49 09/02/24 23:49 09/02/24 23:48 09/02/24 23:43 09/02/24 23:38 09/02/24 23:34 09/02/24 23:33 09/02/24 23:28 09/02/24 23:23 09/02/24 23:19 09/02/24 23:19 09/02/24 23:18 09/02/24 23:13 09/02/24 23:08 09/02/24 23:04 09/02/24 23:04 09/02/24 23:03 09/02/24 22:58 09/02/24 22:53 09/02/24 22:49 09/02/24 22:49 09/02/24 22:48 09/02/24 22:43 09/02/24 22:38 09/02/24 22:34 09/02/24 22:34 09/02/24 22:33 09/02/24 22:28 09/02/24 22:23 09/02/24 22:19 09/02/24 22:18 09/02/24 22:13 09/02/24 22:08 09/02/24 22:06 09/02/24 22:03 09/02/24 22:02 09/02/24 22:01 09/02/24 22:00 09/02/24 22:00 09/02/24 21:58 09/02/24 21:56 09/02/24 21:53 09/02/24 21:50 09/02/24 21:48 09/02/24 21:45 09/02/24 21:43 09/02/24 21:40 09/02/24 21:38 09/02/24 21:37 09/02/24 21:33 09/02/24 21:30 09/02/24 21:28 09/02/24 21:26 09/02/24 21:23 09/02/24 21:21 09/02/24 21:18 09/02/24 21:17 09/02/24 21:13 09/02/24 21:11 09/02/24 21:08 09/02/24 21:05 09/02/24 21:03 09/02/24 21:01 09/02/24 21:00 09/02/24 21:00 09/02/24 21:00 09/02/24 21:00 09/02/24 20:58 09/02/24 20:57 09/02/24 20:53 09/02/24 20:51 09/02/24 20:48 09/02/24 20:46 09/02/24 20:43 09/02/24 20:41 09/02/24 20:38 09/02/24 20:36 09/02/24 20:33 09/02/24 20:31 09/02/24 20:30 09/02/24 20:30 09/02/24 20:28 09/02/24 20:25 09/02/24 20:23
[2024-09-03] MEDS: DOCUSATE SODIUM 100 MG CAP PO SCH (08:50)
[2024-09-03] MEDS: FERROUS SULFATE 325 MG TAB PO SCH (08:50)
[2024-09-03] MEDS: PRENATAL VITAMIN 1 TAB PO SCH (08:50)
[2024-09-03 16:47] VITALS: RESP 20
[2024-09-03] MEDS: bisacodyL 5 MG TABEC PO SCH (19:50)
[2024-09-03 22:34] VITALS: BP 123/77; PULSE 78; TEMP 97.5; O2SAT 98
[2024-09-04] MEDS ORDERED: bisacodyL 10 MG SUPP PR PRN
== END 2024-09-03 23:21 | disposition home or self-care (01) | DRG 807 ==
LOC: OPB 14:43 → 4S1 14:47 → 4E2 09-03 00:46